=== PATIENT | female | born 2000 | race Caucasian/White ===

== ENCOUNTER 2020-03-16 03:28 | Inpatient (IN) | payer OTHER ==
[2020-03-16] MEDS ORDERED: Methylergonovine 0.2 MG/1 ML Amp IM PRN (04:18)
[2020-03-16] MEDS ORDERED: Lidocaine 1% 30 ML SDV INJECT PRN (04:18)
[2020-03-16] MEDS ORDERED: Lactated Ringers 1,000 ML IV ONE (04:18)
[2020-03-16] MEDS ORDERED: Misoprostol 400 MCG (4 X 100 MCG TAB) RECTAL PRN (04:18)
[2020-03-16] MEDS ORDERED: Penicillin G Potassium 5 MILLUNITS in Sodium Chloride 0.9% 100 ML IV ONE (04:18)
[2020-03-16] MEDS ORDERED: Ondansetron 4 MG/2 ML SDV IVPUSH PRN (04:18)
[2020-03-16] MEDS ORDERED: Sodium Chloride 0.9% 10 ML Syringe FLUSH PRN (04:18)
[2020-03-16] MEDS ORDERED: Tranexamic Acid 1,000 MG in Sodium Chloride 0.9% 100 ML IV PRN (04:18)
[2020-03-16] MEDS ORDERED: Carboprost Tromethamine 250 MCG/1 ML Amp IM PRN (04:18)
--- NOTE | 2020-03-16 04:21 | PCM.LDHP ---
L&D History of Present Illness - General Date of Service: 03/16/20 Admit Problem/Dx: Patient Status Order with Admit Dx/Problem 03/16/20 03:54 Admission Status [Patient Status] [ADT] Routine Admission Diagnosis/Problem Admission Diagnosis/Problem Source of Information: Patient History Limitations: Reports: No Limitations - History of Present Illness Introduction:: 19-year-old at 38w2d presents to L&D in active labor. She started having contractions around 2300 last night; however, they rapidly increased in fr equency and intensity in the last hour. Baby has been active. Some blood- tinged discharge has been noted. No new headache or vision changes. has been complicated by a single umbilical artery, very well controlled GDM and GBS positive status. - Related Data Allergies/Adverse Reactions: Allergies Allergy/AdvReac Type Severity Reaction Status Date / Time No Known Allergies Allergy Verified 03/16/20 04:16 Home Medications: Home Meds Ferrous Sulfate [Iron] 325 mg PO DAILY 01/30/20 [History] Pnv No.95/Ferrous Fum/Folic AC [ Tablet] 1 each PO DAILY 01/30/20 [History] H&P Review of Systems - Review of Systems: Review Of Systems: See Below General: Reports: No Symptoms HEENT: Reports: No Symptoms Pulmonary: Reports: No Symptoms Cardiovascular: Reports: No Symptoms Genitourinary: Reports: No Symptoms Skin: Reports: No Symptoms L&D Exam - Exam Exam: See Below - Vital Signs Weight: 83.915 kg - OB Specific Contraction Intensity: Strong Movement: Active Heart Tones: Present Heart Tones per Min: 135 Heart Rate (FHR) Variability: Moderate (6-25 bmp) Presentation: Vertex - Parr Score Parr Score Cervix Position: Anterior Parr Score Consistency: Soft Parr Score Effacement: >80% Parr Score Dilation: > 5 cm Parr Score Infant's Station: -1 ,0 Parr Score Total: 12 - Exam General: Alert, Mild Distress Lungs: Clear to Auscultation, Normal Respiratory Effort Cardiovascular: Regular Rate, Regular Rhythm. No: Systolic Murmur, Diastolic Murmur Genitourinary: Normal external exam Extremities: Pedal Edema (Trace bilaterally) Skin: Warm, Dry, Intact - Patient Data Result Diagrams: 03/16/20 03:58 - Problem List (1) care SNOMED Code(s): 779191239, 11814103, 616998022, 143875797 ICD Code: Z34.90 - ENCNTR FOR SUPRVSN OF NORMAL , UNSP, UNSP TRIMESTER Status: Acute (2) Gestational diabetes SNOMED Code(s): 58504805 ICD Code: O24.419 - GESTATIONAL DIABETES MELLITUS IN , UNSP CONTROL Status: Acute (3) GBS (group B Streptococcus carrier), +RV culture, currently SNOMED Code(s): 6400164639705, 964562743, 6483184233653 ICD Code: O99.820 - STREPTOCOCCUS B CARRIER STATE COMPLICATING Status: Acute (4) Single umbilical artery SNOMED Code(s): 815876820 ICD Code: Q27.0 - CONGENITAL ABSENCE AND HYPOPLASIA OF UMBILICAL ARTERY Status: Acute (5) Anemia in preg-unspec SNOMED Code(s): 64760497 ICD Code: O99.019 - ANEMIA COMPLICATING , UNSPECIFIED TRIMESTER Status: Acute (6) Rubella non-immune status, antepartum SNOMED Code(s): 585850386 ICD Code: O99.891 - OTH DISEASES AND CONDITIONS COMPLICATING ; Z28.3 - UNDERIMMUNIZATION STATUS Status: Acute Problem List Initiated/Reviewed/Updated: Yes Orders Last 24hrs: Active Orders 24 hr Category Date Time Status Admission Status [Patient Status] [ADT] Routine ADT 03/16/20 03:54 Active Communication Order [RC] ASDIRECTED Care 03/16/20 04:18 Ordered Heart Tones [RC] PER UNIT ROUTINE Care 03/16/20 04:18 Ordered Nitrous Oxide Delivery [RC] ASDIRECTED Care 03/16/20 04:20 Ordered Notify Provider Vital Signs OB [RC] ASDIRECTED Care 03/16/20 04:18 Ordered Notify Provider [RC] PRN Care 03/16/20 04:18 Ordered OB Discontinue Nitrous Oxide [RC] ASDIRECTED Care 03/16/20 04:20 Ordered Pump Management, Intrathecal [RC] ASDIRECTED Care 03/16/20 04:18 Ordered Up ad Samantha [RC] ASDIRECTED Care 03/16/20 04:18 Ordered Vital Signs [RC] PER UNIT ROUTINE Care 03/16/20 04:18 Ordered CBC W/O DIFF,HEMOGRAM [HEME] Routine Lab 03/16/20 04:18 Ordered CORONAVIRUS COVID-19 SONU [MOLEC] Stat Lab 03/16/20 04:18 Ordered Acetaminophen [TylenoL] Med 03/16/20 04:18 Ordered 650 mg PO Q4H PRN Carboprost Tromethamine [Hemabate DS] Med 03/16/20 04:18 Ordered 250 mcg IM ASDIRECTED PRN Lactated Ringers @ 125 MLS/HR(1000ml) Med 03/16/20 04:30 Ordered Lactated Ringers [Ringers, Lactated] 1,000 ml IV ASDIRECTED Lactated Ringers [Ringers, Lactated] 1,000 ml Med 03/16/20 04:18 Ordered IV BOLUS Lidocaine 1% [Xylocaine-MPF 1%] Med 03/16/20 04:18 Ordered 30 ml INJECT ASDIRECTED PRN Methylergonovine [Methergine] Med 03/16/20 04:18 Ordered 0.2 mg IM ASDIRECTED PRN Ondansetron [Zofran] Med 03/16/20 04:18 Ordered 4 mg IVPUSH Q4H PRN Oxytocin 30 Units in NS @ 2 MUNITS/MIN(500ml) Med 03/16/20 04:30 Ordered Oxytocin/Normal Saline [Pitocin in NS 30 UNIT/500 ML] 30 unit in 500 ml IV TITRATE Penicillin G Potassium [Pfizerpen] 3 millunits Med 03/16/20 06:00 Ordered Sodium Chloride 0.9% [Normal Saline] 100 ml IV Q4HR Penicillin G Potassium [Pfizerpen] 5 millunits Med 03/16/20 04:18 Ordered Sodium Chloride 0.9% [Normal Saline] 100 ml IV ONETIME Sodium Chloride 0.9% [Saline Flush] Med 03/16/20 04:18 Ordered 10 ml FLUSH ASDIRECTED PRN Tranexamic Acid [Cyklokapron] 1,000 mg Med 03/16/20 04:18 Ordered Sodium Chloride 0.9% [Normal Saline] 100 ml IV ONETIME miSOPROStoL [Cytotec] Med 03/16/20 04:18 Ordered 800 mcg RECTAL ASDIRECTED PRN Saline Lock Insert [OM.PC] Routine Oth 03/16/20 04:18 Ordered Resuscitation Status Routine Resus Stat 03/16/20 04:18 Ordered Assessment/Plan Comment:: 19-year-old at 38w2d in active labor with advanced cervical dilation 1. Admit to L&D and initiate routine intrapartum orders 2. PCN for GBS positive status 3. Patient does not plan on an intrathecal 4. Expectant management. Anticipate Olga Lidia Diaz MD
[2020-03-16] MEDS ORDERED: Oxytocin/Normal Saline 30 UNIT/500 ML BAG IV SCH (04:30)
[2020-03-16] MEDS ORDERED: Lactated Ringers 1,000 ML IV SCH (04:30)
--- NOTE | 2020-03-16 05:55 | PCM.DEL ---
L & D Note - General Info Date of Service: 03/16/20 Mother's Due Date: 03/28/20 - Delivery Note Labor: Spontaneous Delivery Outcome: Livebirth Infant Delivery Method: Spontaneous Vaginal Delivery-Single Presentation: Vertex Nuchal Cord: None Anesthesia Type: Local Anesthetic: Lidocaine (Xylocaine) 1% Plain Local Anesthetic Volume: Other (15) Episiotomy Type: None Laceration: 2nd Degree, Perineal, Vaginal Suture type: Vicryl Suture size: 3-0 Placenta: Intact, Spontaneous Cord: 2 Vessels Estimated Blood Loss: 350 Resuscitation Needed: No [place]: Suctioned, Bulb Syringe, Stimulated, Warmed, [place] Used, Warmer Used Score 1 min: 6 Score 5 min: 8 Delivery Comments (Free Text/Narrative):: 19-year-old presented to L&D around 0400 with contractions that had started at 2300 but rapidly increased in intensity and frequency in the hour prior to arrival. Patient was noted to be 9 cm dilated. Once negative COVID swab was obtained, AROM was performed for moderate clear fluid. Patient progressed to complete dilation. Nitrous oxide was used for pain management. Patient pushed for approximately 25 minutes and delivered a viable female with Apgars of 6 and 8 at 1 and 5 minutes respectively. Infant was placed on mother's chest. Cord was clamped x 2 and cut. Cord blood was collected. Placenta delivered spontaneously about 12 minutes later. Pitocin was started, and uterus was noted to be firm. A second degree perineal laceration with extension into the right vaginal wall was repaired using 3-0 Vicryl with running sutures. Repair was moderately difficult but with good results. After repair was completed, uterus was again assessed and noted to be firm. Bleeding was noted to be appropriate. Patient tolerated the procedure well with no immediate complications. Due to the rapid nature of delivery, patient did not receive PCN for her GBS positive status. - General Info Date of Service: 03/16/20 - Patient Data Weight - Most Recent: 83.915 kg Lab Results Last 24 Hours: Laboratory Results - last 24 hr 03/16/20 03/16/20 Range/Units 03:45 03:58 WBC 16.4 H (5.0-10.0) 10^3/uL RBC 4.77 (4.2-5.4) 10^6/uL Hgb 13.4 (12.0-16.0) g/dL Hct 37.7 (37.0-47.0) % MCV 79.0 L (80-100) fL MCH 28.1 (27.0-34.0) pg MCHC 35.5 H (33.0-35.0) g/dL Plt Count 282 (150-450) 10^3/uL SARS-CoV-2 RNA (SONU) Negative (NEGATIVE) Med Orders - Current: Current Medications Acetaminophen (Tylenol) 650 mg PO Q4H PRN PRN Reason: Pain (Mild 1-3) and fever Carboprost Tromethamine (Hemabate Ds) 250 mcg IM ASDIRECTED PRN PRN Reason: HEMORRHAGE Lactated Ringer's (Ringers, Lactated) 1,000 mls @ 125 mls/hr IV ASDIRECTED VINCENT Last Admin: 03/16/20 04:20 Dose: 125 mls/hr Documented by: Tranexamic Acid 1,000 mg/ (Sodium Chloride) 110 mls @ 660 mls/hr IV ONETIME PRN PRN Reason: Bleeding Oxytocin/Sodium Chloride (Pitocin In Ns 30 Unit/500 Ml) 30 unit in 500 mls @ 2 mls/hr IV TITRATE VINCENT; Protocol Last Admin: 03/16/20 05:22 Dose: 500 munits/min, 500 mls/hr Documented by: Penicillin G Potassium 3 (millunits/ Sodium Chloride) 100 mls @ 200 mls/hr IV Q4H VINCENT Lidocaine HCl (Xylocaine-Mpf 1%) 30 ml INJECT ASDIRECTED PRN PRN Reason: Perineal Repair Last Admin: 03/16/20 05:11 Dose: 30 ml Documented by: Methylergonovine Maleate (Methergine) 0.2 mg IM ASDIRECTED PRN PRN Reason: Hemorrhage Misoprostol (Cytotec) 800 mcg RECTAL ASDIRECTED PRN PRN Reason: Hemorrhage Ondansetron HCl (Zofran) 4 mg IVPUSH Q4H PRN PRN Reason: Nausea/Vomiting Sodium Chloride (Saline Flush) 10 ml FLUSH ASDIRECTED PRN PRN Reason: Keep Vein Open Discontinued Medications Lactated Ringer's (Ringers, Lactated) 1,000 mls @ 999 mls/hr IV BOLUS ONE Stop: 03/16/20 05:18 Penicillin G Potassium 5 (millunits/ Sodium Chloride) 100 mls @ 200 mls/hr IV ONETIME ONE Stop: 03/16/20 04:47 - Problem List & Annotations (1) (normal spontaneous vaginal delivery) SNOMED Code(s): 72176742, 412467766 Code(s): O80 - ENCOUNTER FOR FULL-TERM UNCOMPLICATED DELIVERY Status: Acute (2) Obstetric vaginal laceration SNOMED Code(s): 422456965 Code(s): O71.4 - OBSTETRIC HIGH VAGINAL LACERATION ALONE Status: Acute (3) Anemia in preg-unspec SNOMED Code(s): 92248670 Code(s): O99.019 - ANEMIA COMPLICATING , UNSPECIFIED TRIMESTER Status: Acute (4) GBS (group B Streptococcus carrier), +RV culture, currently SNOMED Code(s): 3796497025127, 747098078, 0530101966987 Code(s): O99.820 - STREPTOCOCCUS B CARRIER STATE COMPLICATING Status: Acute (5) Gestational diabetes SNOMED Code(s): 21403233 Code(s): O24.419 - GESTATIONAL DIABETES MELLITUS IN , UNSP CONTROL Status: Acute (6) care SNOMED Code(s): 480444846, 46987803, 755080243, 932240433 Code(s): Z34.90 - ENCNTR FOR SUPRVSN OF NORMAL , UNSP, UNSP TRIMESTER Status: Acute (7) Rubella non-immune status, antepartum SNOMED Code(s): 931979770 Code(s): O99.891 - OTH DISEASES AND CONDITIONS COMPLICATING ; Z28.3 - UNDERIMMUNIZATION STATUS Status: Acute (8) Single umbilical artery SNOMED Code(s): 873174876 Code(s): Q27.0 - CONGENITAL ABSENCE AND HYPOPLASIA OF UMBILICAL ARTERY Status: Acute - Problem List Review Problem List Initiated/Reviewed/Updated: Yes - My Orders Last 24 Hours: My Active Orders 03/16/20 03:54 Admission Status [Patient Status] [ADT] Routine 03/16/20 04:18 Communication Order [RC] ASDIRECTED Heart Tones [RC] PER UNIT ROUTINE Notify Provider Vital Signs OB [RC] ASDIRECTED Notify Provider [RC] PRN Pump Management, Intrathecal [RC] ASDIRECTED Up ad Samantha [RC] ASDIRECTED Vital Signs [RC] PER UNIT ROUTINE Acetaminophen [TylenoL] 650 mg PO Q4H PRN Carboprost Tromethamine [Hemabate DS] 250 mcg IM ASDIRECTED PRN Lidocaine 1% [Xylocaine-MPF 1%] 30 ml INJECT ASDIRECTED PRN Methylergonovine [Methergine] 0.2 mg IM ASDIRECTED PRN Ondansetron [Zofran] 4 mg IVPUSH Q4H PRN Sodium Chloride 0.9% [Saline Flush] 10 ml FLUSH ASDIRECTED PRN Tranexamic Acid [Cyklokapron] 1,000 mg Sodium Chloride 0.9% [Normal Saline] 100 ml IV ONETIME miSOPROStoL [Cytotec] 800 mcg RECTAL ASDIRECTED PRN Saline Lock Insert [OM.PC] Routine Resuscitation Status Routine 03/16/20 04:20 Nitrous Oxide Delivery [RC] ASDIRECTED OB Discontinue Nitrous Oxide [RC] ASDIRECTED 03/16/20 04:30 Lactated Ringers [Ringers, Lactated] 1,000 ml IV ASDIRECTED Oxytocin/Normal Saline [Pitocin in NS 30 UNIT/500 ML] 30 unit in 500 ml IV TITRATE 03/16/20 08:30 Penicillin G Potassium [Pfizerpen] 3 millunits Sodium Chloride 0.9% [Normal Saline] 100 ml IV Q4H - Assessment Assessment:: 19-year-old now s/p at 38w2d - Plan Plan:: 1. Initiate routine orders 2. Will check CBC tomorrow morning 3. Plans to breastfeed 4. Anticipate discharge 03/18/2020. Dr. Soto to assume care over the weekend. Olga Lidia Diaz MD
[2020-03-16] MEDS ORDERED: Oxytocin 10 Units/1 ML SDV IM PRN (05:57)
[2020-03-16] MEDS ORDERED: Benzocaine/Menthol 20%-0.5% Spray 56 GM Canister TOP PRN (05:57)
[2020-03-16] MEDS ORDERED: Simethicone 80 MG Tab.Chew PO PRN (05:57)
[2020-03-16] MEDS ORDERED: Penicillin G Potassium 3 MILLUNITS in Sodium Chloride 0.9% 100 ML IV SCH (08:30)
[2020-03-16] MEDS: Docusate Sodium 100 MG Cap PO SCH ×2 (10:40→20:36)
[2020-03-16] MEDS: Ibuprofen 800 MG Tab PO PRN ×2 (10:41→20:35)
[2020-03-16] MEDS: Prenatal Multivitamin with Calcium/Folic Acid/Iron Tab PO SCH (11:52)
[2020-03-16] MEDS: Acetaminophen 325 MG Tab PO PRN (20:36)
[2020-03-17] MEDS: Docusate Sodium 100 MG Cap PO SCH ×2 (08:29→20:29)
[2020-03-17] MEDS: Acetaminophen 325 MG Tab PO PRN ×3 (08:29→17:31)
[2020-03-17] MEDS: Prenatal Multivitamin with Calcium/Folic Acid/Iron Tab PO SCH (08:56)
--- NOTE | 2020-03-17 11:48 | PN ---
DATE: 03/17/2020 Seen at [facility]. SUBJECTIVE: The patient is day 1 status post vaginal delivery. She does have A1 gestational diabetes. Mom and baby are both doing well. Lochia is minimal. PHYSICAL EXAMINATION: Vital Signs: The patient is afebrile. Heart rate 92, blood pressure systolic 107 to 118, diastolic 66 to 68, respiratory rate 16 to 18, O2 sat 100%. The patient's blood type is B positive. She is rubella nonimmune. She was COVID negative. Fundus is firm below the umbilicus. Extremities: Have no tenderness, no edema. LABORATORY DATA: A CBC prior to delivery showed white count 16.4, hemoglobin 13.4, and platelets of 282. ASSESSMENT AND PLAN: day 1 status post vaginal delivery with A1 gestational diabetes. Mom and baby are both doing well. We will continue care and likely discharge tomorrow. [facility] /[id number]
[2020-03-17] MEDS: Ibuprofen 800 MG Tab PO PRN (17:30)
[2020-03-17] MEDS ORDERED: Measles, Mumps & Rubella Vaccine 0.5 ML SDV SUBCUT ONE (18:50)
[2020-03-18] MEDS: Acetaminophen 325 MG Tab PO PRN (00:54)
[2020-03-18] MEDS: Ibuprofen 800 MG Tab PO PRN (00:55)
[2020-03-18] MEDS: Docusate Sodium 100 MG Cap PO SCH (08:19)
[2020-03-18] MEDS: Prenatal Multivitamin with Calcium/Folic Acid/Iron Tab PO SCH (08:23)
--- NOTE | 2020-03-18 11:27 | PN ---
DATE: 03/18/2020 SUBJECTIVE: The patient is day #2 from a vaginal delivery. Mom and baby are both doing well. She is breast feeding. Lochia is minimal. PHYSICAL EXAMINATION: Vital Signs: The patient is afebrile. Heart rate 77 to 92, blood pressure systolic 107 to 125 over diastolic 66 to 76, respiratory rate 16 to 18, O2 sat 100%. Abdomen: The patient's fundus is firm below the umbilicus. Extremities: Have no tenderness, no edema. LABORATORY DATA: The patient pre-delivery was COVID negative and hemoglobin was 13.4 prior to delivery. ASSESSMENT AND PLAN: day #2, status post vaginal delivery. Mom and baby are both doing well. We will discharge the patient to home and she will have a followup with her primary in 6 weeks. [facility] /[id number]
== END 2020-03-18 12:00 | disposition home or self-care (01) | DRG 806 ==
LOC: DL.OBCHECK 03:28 → DL.OB 03:52 → OBSVTOIN 05:04
PROVIDERS: ADMIT Family Medicine; ATTEND Family Medicine
PROC: 10E0XZZ Delivery of Products of Conception, External Approach (ICD-10-PCS; principal; 2020-03-16)
PROC: 0KQM0ZZ Repair Perineum Muscle, Open Approach (ICD-10-PCS; 2020-03-16)
PROC: 10907ZC Drainage of Amniotic Fluid, Therapeutic from Products of Conception, Via Natural or Artificial Opening (ICD-10-PCS; 2020-03-16)
PROC: 3E0234Z Introduction of Serum, Toxoid and Vaccine into Muscle, Percutaneous Approach (ICD-10-PCS; 2020-03-17)
DX: O24.429 Gestational diabetes mellitus in childbirth, unspecified control (principal); O71.4 Obstetric high vaginal laceration alone; Z37.0 Single live birth; Z20.828 Contact with and (suspected) exposure to other viral communicable diseases; Z68.38 Body mass index [BMI] 38.0-38.9, adult; Z23 Encounter for immunization; O99.02 Anemia complicating childbirth; D64.9 Anemia, unspecified
CPT/HCPCS: 36415; 59409; 85027; 90471; 90707; A9270-GY; J2001; J2590; J7120; U0002

== ENCOUNTER 2023-06-19 09:58 | Inpatient (IN) | payer OTHER ==
[~2023-06-19 09:58] MED LIST: Carboprost Tromethamine 250 MCG/1 ML Amp IM PRN; Lactated Ringers 1,000 ML IV SCH; Methylergonovine 0.2 MG Tab PO PRN; Oxytocin 10 Units/1 ML SDV IM PRN; Sodium Chloride 0.9% 10 ML Syringe FLUSH PRN; Tranexamic Acid 1,000 MG in Sodium Chloride 0.9% 100 ML IV PRN
[2023-06-19] MEDS ORDERED: Oxytocin/Normal Saline 30 UNIT/500 ML BAG ONE (11:03)
[2023-06-19 11:11] LABS: HEMATOCRIT 34.3 % (37.0-47.0); HEMOGLOBIN 11.7 g/dL (12.0-16.0); MEAN CORPUSCULAR HEMOGLOBIN 27.6 pg (27.0-34.0); MEAN CORPUSCULAR HGB CONC 34.1 g/dL (33.0-35.0); MEAN CORPUSCULAR VOLUME 80.9 fL (80-100); PLATELET COUNT,PLT 300 10^3/uL (150-450); RED BLOOD CELL COUNT 4.24 10^6/uL (4.2-5.4); WHITE BLOOD CELL COUNT,WBC 12.3 10^3/uL (5.0-10.0)
[2023-06-19] MEDS ORDERED: ceFAZolin 2 GM Vial ONE (11:20)
[2023-06-19] MEDS ORDERED: Ketorolac 30 MG/ML SDV ONE (11:20)
[2023-06-19] MEDS ORDERED: Ondansetron 4 MG/2 ML SDV ONE (11:20)
[2023-06-19] MEDS ORDERED: Oxytocin 10 Units/1 ML SDV ONE (11:20)
[2023-06-19] MEDS ORDERED: Dexamethasone 4 MG/ML SDV ONE (11:20)
[2023-06-19 11:30] LABS: BASOPHILS PERCENT AUTO 0.2 % (0.0-1.0); EOSINOPHILS PERCENT AUTO 1.3 % (1.0-3.0); LYMPHOCYTES PERCENT AUTO 20.2 % (20.5-50.1); MONOCYTES PERCENT AUTO 6.3 % (2-8)
[2023-06-19 11:31] LABS: BAND PERCENT MAN 3 %; LYMPHOCYTES PERCENT MAN 19 % (20-50); MONOCYTES PERCENT MAN 4 % (2-8); SEG NEUTROPHILS PERCENT MAN 73 % (42-75)
[2023-06-19 11:32] LABS: EOSINOPHILS PERCENT MAN 1 % (1-3)
[2023-06-19] MEDS ORDERED: Tranexamic Acid 1,000 MG/10 ML Vial ONE (12:14)
[2023-06-19] MEDS: Oxytocin/Normal Saline 30 UNIT/500 ML BAG IV SCH (12:58)
[2023-06-19] MEDS: Lactated Ringers 1,000 ML IV SCH ×2 (13:48→17:10)
[2023-06-19] MEDS ORDERED: diphenhydrAMINE 50 MG/ML SDV IVPUSH PRN (16:35)
[2023-06-19] MEDS ORDERED: Tranexamic Acid 1,000 MG in Sodium Chloride 0.9% 100 ML IV PRN (16:35)
[2023-06-19] MEDS ORDERED: Acetaminophen 325 MG Tab PO PRN (16:35)
[2023-06-19] MEDS ORDERED: ePHEDrine 50 MG/ML SDV IVPUSH PRN (16:35)
[2023-06-19] MEDS ORDERED: Naloxone 2 MG/2 ML Syringe IVPUSH PRN (16:35)
[2023-06-19] MEDS ORDERED: Misoprostol 400 MCG (4 X 100 MCG TAB) RECTAL PRN (16:35)
[2023-06-19] MEDS ORDERED: Methylergonovine 0.2 MG/1 ML Amp IM PRN (16:35)
[2023-06-19] MEDS ORDERED: Carboprost Tromethamine 250 MCG/1 ML Amp IM PRN (16:35)
[2023-06-19] MEDS: Ondansetron 4 MG/2 ML SDV IVPUSH ONE (17:10)
[2023-06-19] MEDS: Ketorolac 30 MG/ML SDV IVPUSH SCH (17:12)
[2023-06-19] MEDS: Simethicone 80 MG Tab.Chew PO SCH (17:13)
[2023-06-19] MEDS: Metoclopramide 10 MG/2 ML SDV IVPUSH ONE (18:33)
[2023-06-19] MEDS: Ondansetron 4 MG/2 ML SDV IVPUSH PRN (22:25)
[2023-06-20 06:29] LABS: HEMATOCRIT 29.4 % (37.0-47.0); HEMOGLOBIN 9.8 g/dL (12.0-16.0); MEAN CORPUSCULAR HEMOGLOBIN 27.5 pg (27.0-34.0); MEAN CORPUSCULAR HGB CONC 33.3 g/dL (33.0-35.0); MEAN CORPUSCULAR VOLUME 82.4 fL (80-100); RED BLOOD CELL COUNT 3.57 10^6/uL (4.2-5.4); WHITE BLOOD CELL COUNT,WBC 13.9 10^3/uL (5.0-10.0)
[2023-06-20] MEDS: Misoprostol 400 MCG (4 X 100 MCG TAB) RECTAL ONE (07:18)
[2023-06-20] MEDS: Citric Acid/Sodium Citrate Solution 30 ML Cup PO ONE (07:19)
[2023-06-20] MEDS: ceFAZolin 2 GM Vial IVPUSH ONE (07:19)
[2023-06-20] MEDS: Sodium Chloride 0.9% 10 ML Syringe FLUSH SCH (07:19)
[2023-06-20] MEDS: Acetaminophen/oxyCODONE 325-5 MG Tab PO PRN ×2 (09:09→22:21)
[2023-06-20] MEDS: Docusate Sodium 100 MG Cap PO PRN (09:09)
[2023-06-20] MEDS: Prenatal Multivitamin with Calcium/Folic Acid/Iron Tab PO SCH (09:10)
[2023-06-20] MEDS: Ibuprofen 800 MG Tab PO PRN (16:57)
[2023-06-21] MEDS: Benzocaine/Cetylpyridinium/Menthol Lozenge MUCMEM PRN (11:51)
== END 2023-06-21 12:55 | disposition home or self-care (01) | DRG 787 ==
LOC: DL.OB 09:58 → OBSVTOIN 12:12
PROVIDERS: ADMIT Family Medicine; ATTEND Family Medicine
PROC: 10D00Z1 Extraction of Products of Conception, Low, Open Approach (ICD-10-PCS; principal; 2023-06-19 12:00)
DX: O32.1XX0 Maternal care for breech presentation, not applicable or unspecified (principal); D62 Acute posthemorrhagic anemia; Z37.0 Single live birth; O24.425 Gestational diabetes mellitus in childbirth, controlled by oral hypoglycemic drugs; O90.81 Anemia of the puerperium; Z3A.39 39 weeks gestation of pregnancy
CPT/HCPCS: 01961; 36415; 59025; 76815; 85025; 85027; 86850; 86900; 86901; A9270-GY; J1885; J2405; J2590; J2765; J7120